=== PATIENT | male | born 1945 | race American Indian/Alaskan Native ===

== ENCOUNTER 2016-12-09 09:24 | Observation (INO) | payer MEDICARE, BC ==
[2016-12-09 09:25] VITALS: BMI 21.5
--- NOTE | 2016-12-09 10:17 | C.PDOC ---
History Of Present Illness 71 Y/O MALE PRESENTS TO ED C/O NEW ONSET RECTAL BLEED THIS MORNING. PT REPORTS CONSTIPATION ONGOING FOR SEVERAL WEAKS, +STRAINING, AND NOTES LARGE BM A FEW DAYS AGO. REPORTS REGULAR BOWEL MOVEMENT WITH GROSS BLOOD/CLOTS. NOTES ASSOCIATED RECTAL PAIN AND ABDOMINAL CRAMPING. TRIED OTC HEMORRHOID REMEDIES W/ LIMITED IMPROVEMENT. PT CURRENTLY ON CHEMO FOR PROSTATE CANCER. NO ABD SURGICAL HISTORY. PT MISSED DIALYSIS YESTERDAY ([facility] DR. BERGER). FAMILY STATES "DR. BUSTOS WANTS NOTIFICATION". ho met prostate ca to bone Time Seen by Provider: 12/09/16 09:36 Chief Complaint (Nursing): Abdominal Pain History Per: Patient, Family History/Exam Limitations: no limitations Onset/Duration Of Symptoms: Hrs Current Symptoms Are (Timing): Still Present Quality Of Discomfort: "Pain" Associated Symptoms: denies: Vomiting, Diarrhea Recent travel outside of the [place]: No Past Medical History Reviewed: Historical Data, Nursing Documentation, Vital Signs Vital Signs: Last Vital Signs Temp 98.3 F 12/09/16 09:29 Pulse 92 H 12/09/16 11:53 Resp 20 12/09/16 11:53 BP 174/97 H 12/09/16 11:53 Pulse Ox 100 12/09/16 12:44 - Medical History PMH: HTN, Chronic Kidney Disease Family History: States: Unknown Family Hx - Social History Hx Alcohol Use: No Hx Substance Use: No - Immunization History Hx Influenza Vaccination: No Review Of Systems Except As Marked, All Systems Reviewed And Found Negative. Constitutional: Negative for: Fever, Chills Cardiovascular: Negative for: Chest Pain Respiratory: Negative for: Cough, Shortness of Breath, Wheezing Gastrointestinal: Positive for: Abdominal Pain, Constipation, Hematochezia, Rectal Pain. Negative for: Nausea, Vomiting, Diarrhea Skin: Negative for: Rash Neurological: Negative for: Headache, Dizziness Physical Exam - Physical Exam Appears: Non-toxic, No Acute Distress Skin: Normal Color, Warm, Dry Head: Atraumatic, Normacephalic Oral Mucosa: Moist Chest: Symmetrical Cardiovascular: Rhythm Regular Respiratory: Normal Breath Sounds, No Rales, No Rhonchi, No Wheezing Gastrointestinal/Abdominal: Soft, Tenderness (MILD, LOWER QUADRANTS), No Distention, No Guarding, No Rebound Rectal: Other (NO VISUALIZED EXTERNAL HEMORRHOIDS. +FECAL INCONTINENCE W/ BRIGHT RED CLOTS.) Back: Normal Inspection Extremity: Normal ROM Neurological/Psych: Oriented x3, Normal Speech, Normal Cognition ED Course And Treatment - Laboratory Results Result Diagrams: 12/09/16 10:24 12/09/16 10:24 O2 Sat by Pulse Oximetry: 100 - Other Rad CHEST XRAY X-Ray: Viewed By Me, Read By Radiologist Interpretation: IMPRESSION: Right-sided MediPort terminates at the expected location of the SVC. Mild pulmonary venous congestion. Cardiomegaly. Bony metastatic disease re-identified. Nuclear medicine bone scan may be considered if indicated. Left upper extremity vascular stent. Progress - Re-Evaluation Re-evaluation Note: 12/09/16 10:[address] Dimitri BUSTOS 12/09/16 10:20 D/W DR [place] C/F DR BERGER WILL CONSULT, ARRANGE FOR HD 12/09/16 10:[address] BUSTOS, WILL EVAL PT IN ER 12/09/16 14:17 NO RECUR LGIB SINCE INITIAL EVAL. PT STABLE IN HD. D/W DR WELLINGTON C/F PMD WILL AMDIT - Data Reviewed Data Reviewed: Lab, Diagnostic imaging, EKG, Old records - Continuity of Care Discussed patient case with:: Patient, Family-HIPPA compliant, Covering for PMD Discussed pt. case with sap solution manager consultant/specialty: Nephrology, Urology Disposition Counseled Patient/Family Regarding: Studies Performed, Diagnosis - Disposition Disposition: HOSPITALIZED Disposition Time: 14:21 Condition: STABLE Forms: [facility] (Indian) - POA Present On Arrival: None - Clinical Impression Clinical Impression: GI bleed, ESRD (end stage renal disease) - Scribe Statement The provider has reviewed the documentation as recorded by the Scribe SM All medical record entries made by the Scribe were at my direction and personally dictated by me. I have reviewed the chart and agree that the record accurately reflects my personal performance of the history, physical exam, medical decision making, and the department course for this patient. I have also personally directed, reviewed, and agree with the discharge instructions and disposition. Decision To Admit - Pt Status Changed To: Hospital Disposition Of: Observation - . Bed Request Type: Regular Admitting Physician: Sujit Wellington Patient Diagnosis: GI bleed, ESRD (end stage renal disease)
[2016-12-09] MEDS ORDERED: Iohexol 240 (50 ml) PO STA (10:18)
[2016-12-09 10:29] LABS: BASO % 0.6 % (0.0-2.0); EOS # 0.1 K/uL (0.0-0.7); EOS % 0.7 % (0.0-4.0); HEMATOCRIT 33.4 % (35.0-51.0); LYMPH # 0.8 K/uL (1.0-4.3); LYMPH % 9.4 % (20.0-40.0); MEAN CELL VOLUME 103.6 fL (80.0-94.0); MEAN CORPUSCULAR HEMOGLOBIN 32.7 pg (27.0-31.0); MEAN CORPUSCULAR HGB CONC 31.5 g/dL (33.0-37.0); MONO # 0.9 K/uL (0.0-0.8); MONO % 10.7 % (0.0-10.0); RED CELL DISTRIBUTION WIDTH 19.3 % (11.5-14.5); WHITE BLOOD COUNT 8.4 K/uL (4.8-10.8)
[2016-12-09 10:36] LABS: INR 1.1
[2016-12-09 10:38] LABS: POTASSIUM 5.4 mmol/L (3.6-5.2)
[2016-12-09 10:39] LABS: ALB/GLOB RATIO 1.2 (1.0-2.1); BILIRUBIN,TOTAL 0.5 mg/dL (0.2-1.3); TOTAL PROTEIN 5.3 g/dL (6.3-8.3)
[2016-12-09 10:40] LABS: CALCIUM 9.1 mg/dl (8.6-10.4)
[2016-12-09 10:44] LABS: PLATELET COUNT 96 K/uL (130-400)
[2016-12-09 10:57] LABS: EOSINOPHIL 1 % (0-4); NEUTROPHIL 75 % (50-75); TOTAL CELLS COUNTED 100
[2016-12-09] MEDS ORDERED: Iohexol 240 (50 ml) ONE (10:58)
--- NOTE | 2016-12-09 12:08 | RAD ---
HISTORY: abd pain GI BLEED HO PROSTATE CA COMPARISON: Chest x-ray performed 11/02/16 TECHNIQUE: Chest, one view. FINDINGS: Right-sided MediPort terminates at the expected location of the SVC. LUNGS: Mild pulmonary venous congestion. Please note that chest x-ray has limited sensitivity for the detection of pulmonary masses. PLEURA: No significant pleural effusion identified. No definite pneumothorax . CARDIOVASCULAR: Cardiomegaly. Atherosclerotic calcifications of the aortic knob. OSSEOUS STRUCTURES: Disseminated sclerotic osseous metastatic disease re-identified. VISUALIZED UPPER ABDOMEN: Unremarkable. OTHER FINDINGS: Left upper extremity vascular stent. IMPRESSION: Right-sided MediPort terminates at the expected location of the SVC. Mild pulmonary venous congestion. Cardiomegaly. Bony metastatic disease re-identified. Nuclear medicine bone scan may be considered if indicated. Left upper extremity vascular stent. Findings discussed with Dr. Lovell on 12/09/16 at 12:05 p.m.
--- NOTE | 2016-12-09 12:44 | C.PDOC ---
History Of Present Illness PLEASE SEE DICTATED REPORT JOB# [id number] YS IMP: PROSTATE CA RENAL FAILURE BONE METASTASES BACK PAIN RECTAL BLEEDING CONSTIPATION CASTRATE RESISTANT PROSTATE CA Time Seen by Provider: 12/09/16 09:36 Chief Complaint (Nursing): Abdominal Pain Past Medical History Vital Signs: Last Vital Signs Temp 99.4 F 12/11/16 15:10 Pulse 92 H 12/11/16 15:10 Resp 20 12/11/16 15:10 BP 155/71 H 12/11/16 15:10 Pulse Ox 97 12/11/16 15:10 - Medical History PMH: HTN, Chronic Kidney Disease Family History: States: Unknown Family Hx - Social History Hx Alcohol Use: No Hx Substance Use: No - Immunization History Hx Influenza Vaccination: No ED Course And Treatment - Laboratory Results Result Diagrams: 12/10/16 00:32 12/11/16 07:05 O2 Sat by Pulse Oximetry: 100 Disposition - Disposition Disposition: HOSPITALIZED Disposition Time: 12:00 Condition: FAIR - Clinical Impression Clinical Impression: GI bleed, ESRD (end stage renal disease)
[2016-12-09] MEDS ORDERED: Iodixanol 320 MG/ML 100 ML BOTTLE IV ONE (12:52)
--- NOTE | 2016-12-09 14:00 | CT ---
PROCEDURE: CT Abdomen and Pelvis with oral and IV contrast. HISTORY: abd pain RECTAL BLEED HO PROSTATE CA, ESRD COMPARISON: None. TECHNIQUE: Contiguous axial images of the abdomen and pelvis. Oral and IV contrast was administered. Coronal and Sagittal reformats generated. Contrast dose: Radiation dose: Total exam DLP = 319.67 mGy-cm. This CT exam was performed using one or more of the following dose reduction techniques: Automated exposure control, adjustment of the mA and/or kV according to patient size, and/or use of iterative reconstruction technique. FINDINGS: LOWER THORAX: Moderate bilateral pleural effusions and associated consolidations. No visible pneumothorax. LIVER: Heterogeneous hepatic parenchyma. Innumerable too small characterize hepatic lesions. GALLBLADDER AND BILE DUCTS: Cholelithiasis. PANCREAS: Unremarkable. SPLEEN: Unremarkable. ADRENALS: Unremarkable. KIDNEYS AND URETERS: Atrophic bilateral kidneys. Too small to characterize bilateral renal hypodense lesions. Indeterminate left upper pole 9 x 13 mm hypodensity. No hydronephrosis. BLADDER: The urinary bladder appears unremarkable. REPRODUCTIVE: Prostatic radiation seeds. APPENDIX: The appendix appears within normal limits of caliber. No secondary signs of acute appendicitis. BOWEL: The stomach is nondistended. The bowel loops appear within normal limits of caliber without evidence of intestinal obstruction. PERITONEUM: No significant free fluid. No definite free air. LYMPH NODES: No bulky lymphadenopathy identified. VASCULATURE: Aneurysmal dilatation of the abdominal aorta and bilateral common iliac arteries. Abdominal aorta measures up to 4.1 cm in AP dimension and 4.0 cm in transverse dimension the right common iliac artery measures up to 2.2 cm the left common iliac artery measures approximately 1.7 cm. A stent is noted within the left common iliac artery. 11 mm hypodense out pouching along the lateral aspect of the proximal left common iliac artery appears consistent with thrombosed saccular aneurysm. BONES: Diffuse sclerotic metastases. OTHER FINDINGS: Interval development of presacral fluid. IMPRESSION: Aneurysmal dilatation of the abdominal aorta and bilateral common iliac arteries as above. 11 mm hypodense out pouching along the lateral aspect of the proximal left common iliac artery appears consistent with thrombosed saccular aneurysm. Innumerable too small to characterize hepatic hypodensities. Findings appear most worrisome for metastatic disease. Correlate clinically. Diffuse sclerotic metastases. Prostatic radiation beads. Cholelithiasis. Atrophic bilateral kidneys with low-density lesions, too small to characterize. Additionally there is an indeterminate left upper pole 9 x 13 mm hypodensity. Interval development of presacral fluid. Remainder of findings as above.
[2016-12-09] MEDS ORDERED: Pantoprazole 80 MG in Sodium Chloride 0.9% 100 ML IVP SCH (17:00)
[2016-12-09 17:47] LABS: BASO % 0.4 % (0.0-2.0); EOS # 0.1 K/uL (0.0-0.7); EOS % 1.5 % (0.0-4.0); HEMATOCRIT 34.9 % (35.0-51.0); LYMPH # 0.6 K/uL (1.0-4.3); LYMPH % 6.7 % (20.0-40.0); MEAN CELL VOLUME 103.1 fL (80.0-94.0); MEAN CORPUSCULAR HEMOGLOBIN 33.6 pg (27.0-31.0); MEAN CORPUSCULAR HGB CONC 32.5 g/dL (33.0-37.0); MONO # 0.9 K/uL (0.0-0.8); MONO % 10.6 % (0.0-10.0); PLATELET COUNT 100 K/uL (130-400); RED CELL DISTRIBUTION WIDTH 19.4 % (11.5-14.5); WHITE BLOOD COUNT 8.8 K/uL (4.8-10.8)
[2016-12-09 18:28] LABS: NEUTROPHIL 78 % (50-75); TOTAL CELLS COUNTED 100
--- NOTE | 2016-12-09 18:40 | CP.PCM.HP ---
<Zachary Vásquez - Last Filed: 12/09/16 19:35> History of Present Illness - History of Present Illness History of Present Illness: PGY-1 H&P for Dr. Emmanuel CC: Rectal bleeding since this morning (12/09/16) This is a 71 year old male with PMHx metastatic prostate cancer (mets to the thoracolumbar spine, ribs, pelvis, right shoulder), hypertension, ESRD on HD ( , , ) who presented to the ED with complaint of bright red blood in the stool. This began in the morning when the patient noticed regina blood in the stool with clots mixed in. Stool was partially watery and solid. This was a one time episode and has not previously occurred. Patient is complaining of associated rectal pain worse with sitting and with defecation. Patient is incontinent of stool at his baseline and wears an adult diaper. Patient is able to feel his bowel movements but cannot control it. Patient admits to constipation with associated tenesmus. He states that he has been straining since a few weeks prior to today's episode. Patient has been experiencing RUQ abdominal pain for the past 2 weeks described as a constant 7/10 burning pain. Patient also complaining of sour taste in his mouth with excessive belching. Yesterday patient missed his dialysis session due to feeling sick which he described as simply feeling weak. At baseline, patient is able to ambulate on his own but requires his to assist with toileting and showers. Patient receives chemotherapy every 3 weeks for his prostate cancer. Patient was seen and examined while he was undergoing hemodialysis. PMHx: Metastatic prostate cancer (mets to the thoracolumbar spine, ribs, pelvis , right shoulder), hypertension, ESRD on HD (, , ) PSHx: Radioactive seeds implantation for prostate CA 3-4 years ago Allergies: NKDA Social: Former smoker smoked 2 ppd for 25 years and also quit about 25 years ago. Denies alcohol, drug use. Family Hx: Denies Home meds: See [facility] PMD: Dr. Enzo Alamo Nephro: Dr. Velez Uro: Dr. Ashley Lorenzo Heme/onc: Dr. Raffi Alamo Present on Admission - Present on Admission Any Indicators Present on Admission: No Review of Systems - Constitutional Constitutional: Weakness. absent: Chills, Fever, Headache - EENT Eyes: absent: Change in Vision Ears: absent: Decreased Hearing Nose/Mouth/Throat: absent: Nasal Congestion Additional comments: Sour taste in mouth - Cardiovascular Cardiovascular: absent: Chest Pain, Palpitations - Respiratory Respiratory: absent: Cough, Dyspnea, Wheezing - Gastrointestinal Gastrointestinal: Abdominal Pain, Belching, Bloating, Constipation, Fecal Incontinence (baseline), Hematochezia. absent: Change in Bowel Habits, Change in Stool Character, Diarrhea, Excessive Flatus, Hematemesis, Nausea, Vomiting - Genitourinary Genitourinary: absent: Dysuria, Hematuria Past Patient History - Past Medical History & Family History Past Medical History?: Yes - Past Social History Smoking Status: Never Smoked - CARDIAC Hx Hypertension: Yes - PULMONARY Hx Respiratory Disorders: No - NEUROLOGICAL Hx Neurological Disorder: No - HEENT Hx HEENT Problems: No - RENAL Hx Chronic Kidney Disease: Yes - ENDOCRINE/METABOLIC Hx Endocrine Disorders: No - HEMATOLOGICAL/ONCOLOGICAL Hx Blood Disorders: Yes Hx Cancer: Yes (PROSTATE) Hx Chemotherapy: Yes (CURRENT TREATMENT) Hx Shingles: Yes - INTEGUMENTARY Hx Dermatological Problems: No - MUSCULOSKELETAL/RHEUMATOLOGICAL Hx Musculoskeletal Disorders: No - GASTROINTESTINAL Hx Gastrointestinal Disorders: No - GENITOURINARY/GYNECOLOGICAL Hx Genitourinary Disorders: Yes Hx Hematuria: Yes Hx Prostate Cancer: Yes - PSYCHIATRIC Hx Substance Use: No - SURGICAL HISTORY Hx Surgeries: Yes Hx Arteriovenous Shunt: Yes (LEFT ARM) Other/Comment: right endarectomy, av-shunt - ANESTHESIA Hx Anesthesia: Yes Hx Anesthesia Reactions: No Hx Malignant Hyperthermia: No Meds Allergies/Adverse Reactions: Allergies Allergy/AdvReac Type Severity Reaction Status Date / Time No Known Allergies Allergy Verified 12/09/16 09:28 Physical Exam - Constitutional Appears: No Acute Distress - Head Exam Head Exam: ATRAUMATIC, NORMAL INSPECTION, NORMOCEPHALIC - Eye Exam Eye Exam: EOMI, PERRL Additional comments: Pallor under the eyelids - ENT Exam ENT Exam: Mucous Membranes Dry - Respiratory Exam Respiratory Exam: Clear to Auscultation Bilateral. absent: Rales, Rhonchi, Wheezes - Cardiovascular Exam Cardiovascular Exam: REGULAR RHYTHM, +S1, +S2 - GI/Abdominal Exam GI & Abdominal Exam: Normal Bowel Sounds, Soft, Tenderness (diffuse abdominal tenderness). absent: Organomegaly, Rebound, Rigid Additional comments: Abdominal aortic pulse palpable - Rectal Exam Rectal Exam: Deferred (patient receiving dialysis at time of exam) - Extremities Exam Extremities exam: Positive for: pedal pulses present. Negative for: pedal edema , tenderness Additional comments: Left UE AV shunt - Neurological Exam Neurological exam: Alert, CN II-XII Intact, Oriented x3 Additional comments: Manual muscle strength testing 4/5 bilateral upper and lower extremities symmetrically. Sensations to light touch intact bilateral upper and lower extremities. No pronator drift. Normal finger to nose test. Down-going plantar responses. - Skin Skin Exam: Dry, Intact, Normal Color, Warm Additional comments: Mediport catheter Results - Vital Signs Recent Vital Signs: Last Vital Signs Temp 98.1 F 12/09/16 17:36 Pulse 90 12/09/16 17:36 Resp 20 12/09/16 17:36 BP 155/79 H 12/09/16 17:36 Pulse Ox 98 12/09/16 17:36 - Labs Result Diagrams: 12/09/16 17:39 12/09/16 10:24 Labs: Laboratory Results - last 24 hr 12/09/16 17:39 WBC 8.8 RBC 3.38 L Hgb 11.4 L Hct 34.9 L MCV 103.1 H MCH 33.6 H MCHC 32.5 L RDW 19.4 H Plt Count 100 L MPV 9.0 Neut % (Auto) 80.8 H Lymph % (Auto) 6.7 L [place] % (Auto) 10.6 H Eos % (Auto) 1.5 Baso % (Auto) 0.4 Neut # 7.1 H Lymph # 0.6 L [place] # 0.9 H Eos # 0.1 Baso # 0.0 Assessment & Plan - Assessment and Plan (Free Text) Assessment: This is a 71 year old male with PMHx metastatic prostate cancer (mets to the thoracolumbar spine, ribs, pelvis, right shoulder), hypertension, ESRD on HD (T , , ) who presented to the ED with complaint of bright red blood in the stool. It is likely that this could be due to hemorrhoids vs radiation proctitis vs GI malignancy vs diverticular bleeding vs Crohn's disease. The likelihood of hemorrhoids is supported by patient's complaint of constipation, straining, pain with defecation and sitting. Radiation proctitis causing GI bleed is also possible given patient's history of prostate CA with chemotherapy and radioactive bead implantation. New onset of GI malignancy is possible given patient's history of chemotherapy treatment which can cause more malignancy in the body over time. Diverticular bleeding may also be possible but unlikely given CT findings. Crohn's disease is possible given bimodal age distribution but low likelihood. Plan: GI Bleed NPO status Protonix drip 8 cc/hr Will hold fluids for now considering ESRD Hold all anticoagulants and antiplatelet therapies due to bleeding risk CBC Q6H and will transfuse if hemoglobin drops by more than 1 g/DL Patient type and crossed Dr. Morales GI consulted, help appreciated Metastatic Prostate CA Dr. Dimitri Lorenzo on consult, help appreciated Hypertension Restarted home Norvasc 2.5 mg PO daily Monitor accordingly ESRD Dr. Robledo on consult, help appreciated HD T, , S Abdominal Aortic Aneurysm with peripheral thrombus Dr. Woods, vascular surgery consulted. Help appreciated 4.1 cm AAA Prophylactic Measures SCDs NPO except medications Restarted home Tramadol 50 mg PO Q6H prn pain Case DW Dr. Lien Vásquez PGY-1 - Date & Time Date: 12/09/16 Time: 16:30 <Cj Emmanuel - Last Filed: 01/12/17 11:55> Results - Vital Signs Recent Vital Signs: Last Vital Signs Temp 99.4 F 12/11/16 15:10 Pulse 92 H 12/11/16 15:10 Resp 20 12/11/16 15:10 BP 155/71 H 12/11/16 15:10 Pulse Ox 100 12/15/16 07:46 - Labs Result Diagrams: 12/10/16 00:32 12/11/16 07:05 Attending/Attestation - Attestation I have personally seen and examined this patient.: Yes I have fully participated in the care of the patient.: Yes I have reviewed all pertinent clinical information: Yes Notes (Text): GI Bleed The likelihood of hemorrhoids is supported by patient's complaint of constipation, straining, pain with defecation and sitting. Radiation proctitis causing GI bleed is also possible given patient's history of prostate CA with chemotherapy and radioactive bead implantation. New onset of GI malignancy is possible given patient's history of chemotherapy treatment which can cause more malignancy in the body over time. Diverticular bleeding may also be possible but unlikely given CT findings. Crohn's disease is possible given bimodal age distribution but low likelihood.
--- NOTE | 2016-12-09 21:17 | CP.PCM.CON ---
History of Present Illness - History of Present Illness History of Present Illness: Vascular Surgery Consult Re: AAA with mural thrombus HPI: 71M presented to the ED C/O BRBPR and rectal pain. Began today with blood and clots in the stool. Per pt has not previously occurred. Rectal pain worse with sitting and defecation. Vascular surgery was consulted 2/2 incidental finding of mural thrombus within a known abdominal aortic aneurysm. AAA is unchanged in size since March 2016 (no IV contrast in any other scans). Currently pt denies any abd or back pain. + weakness. PMH: Metastatic prostate cancer, HTN, ESRD on HD PSH: L CEA, Foot surgery, L common iliac stent, Radioactive seeds implantation for prostate CA, L AV shunt SH: Former smoker quit ~25 years ago. Denies EtOH, drug use. All: NKDA Meds: See MAR Review of Systems - Review of Systems All systems: reviewed and no additional remarkable complaints except (as per HPI ) Past Patient History - Past Medical History & Family History Past Medical History?: Yes - Past Social History Smoking Status: Never Smoked - CARDIAC Hx Hypertension: Yes - PULMONARY Hx Respiratory Disorders: No - NEUROLOGICAL Hx Neurological Disorder: No - HEENT Hx HEENT Problems: No - RENAL Hx Chronic Kidney Disease: Yes - ENDOCRINE/METABOLIC Hx Endocrine Disorders: No - HEMATOLOGICAL/ONCOLOGICAL Hx Blood Disorders: Yes Hx Cancer: Yes (PROSTATE) Hx Chemotherapy: Yes (CURRENT TREATMENT) Hx Shingles: Yes - INTEGUMENTARY Hx Dermatological Problems: No - MUSCULOSKELETAL/RHEUMATOLOGICAL Hx Musculoskeletal Disorders: No - GASTROINTESTINAL Hx Gastrointestinal Disorders: No - GENITOURINARY/GYNECOLOGICAL Hx Genitourinary Disorders: Yes Hx Hematuria: Yes Hx Prostate Cancer: Yes - PSYCHIATRIC Hx Substance Use: No - SURGICAL HISTORY Hx Surgeries: Yes Hx Arteriovenous Shunt: Yes (LEFT ARM) Other/Comment: right endarectomy, av-shunt - ANESTHESIA Hx Anesthesia: Yes Hx Anesthesia Reactions: No Hx Malignant Hyperthermia: No Meds Allergies/Adverse Reactions: Allergies Allergy/AdvReac Type Severity Reaction Status Date / Time No Known Allergies Allergy Verified 12/09/16 09:28 - Medications Medications: Current Medications Amlodipine Besylate (Norvasc) 2.5 mg PO DAILY KRISS Last Admin: 12/09/16 19:31 Dose: Not Given Tramadol HCl (Ultram) 50 mg PO Q6 PRN PRN Reason: Pain, moderate (4-7) Physical Exam - Constitutional Appears: Non-toxic, No Acute Distress - Head Exam Head Exam: ATRAUMATIC, NORMOCEPHALIC - Eye Exam Eye Exam: absent: Conjunctival injection, Periorbital swelling, Scleral icterus - ENT Exam ENT Exam: Mucous Membranes Dry Additional comments: trachea midine - Respiratory Exam Respiratory Exam: NORMAL BREATHING PATTERN. absent: Respiratory Distress - Cardiovascular Exam Cardiovascular Exam: RRR, +S1, +S2 - GI/Abdominal Exam GI & Abdominal Exam: Soft. absent: Distended, Firm, Guarding, Rebound, Rigid, Tenderness - Rectal Exam Rectal Exam: Deferred - Extremities Exam Extremities exam: Negative for: calf tenderness, pedal edema Additional comments: LUE AV shunt - Back Exam Back exam: absent: CVA tenderness (L), CVA tenderness (R) - Neurological Exam Neurological exam: Alert, Oriented x3 - Skin Skin Exam: Dry, Warm Results - Vital Signs Recent Vital Signs: Last Vital Signs Temp 98 F 12/09/16 18:12 Pulse 91 H 12/09/16 18:12 Resp 20 12/09/16 18:12 BP 158/79 H 12/09/16 18:12 Pulse Ox 98 12/09/16 18:12 - Labs Result Diagrams: 12/09/16 17:39 12/09/16 10:24 Labs: Laboratory Results - last 24 hr 12/09/16 12/09/16 17:39 19:47 WBC 8.8 RBC 3.38 L Hgb 11.4 L Hct 34.9 L MCV 103.1 H MCH 33.6 H MCHC 32.5 L RDW 19.4 H Plt Count 100 L MPV 9.0 Neut % (Auto) 80.8 H Lymph % (Auto) 6.7 L [place] % (Auto) 10.6 H Eos % (Auto) 1.5 Baso % (Auto) 0.4 Neut # 7.1 H Lymph # 0.6 L [place] # 0.9 H Eos # 0.1 Baso # 0.0 Neutrophils % (Manual) 78 H Lymphocytes % (Manual) 14 L Monocytes % (Manual) 8 Platelet Estimate Slightly decreased L Hypochromasia (manual) Slight Poikilocytosis (manual Slight Anisocytosis (manual) Slight Tear Drop Cells Slight Moose Cells Slight Blood Type B POSITIVE - Imaging and Cardiology CT scan - abdomen Status: Image reviewed by me, Report reviewed by me Assessment & Plan - Assessment and Plan (Free Text) Assessment: 71M with AAA stable during the last 6 months Plan: Mural (peripheral) thrombus part of natural progression of AAA No surgical intervention required Continue outpatient monitoring of AAA [id number] No need for anticoagulation D/W Dr. Mychal Galicia PGY4
[2016-12-10 00:40] LABS: BASO % 0.5 % (0.0-2.0); EOS # 0.2 K/uL (0.0-0.7); EOS % 2.3 % (0.0-4.0); HEMATOCRIT 32.2 % (35.0-51.0); LYMPH # 0.4 K/uL (1.0-4.3); LYMPH % 6.9 % (20.0-40.0); MEAN CELL VOLUME 102.7 fL (80.0-94.0); MEAN CORPUSCULAR HEMOGLOBIN 32.9 pg (27.0-31.0); MEAN PLATELET VOLUME 8.7 fL (7.2-11.7); MONO # 0.8 K/uL (0.0-0.8); MONO % 11.8 % (0.0-10.0); NRBC % 0.1 % (0.0-2.0); PLATELET COUNT 87 K/uL (130-400); RED CELL DISTRIBUTION WIDTH 19.3 % (11.5-14.5); WHITE BLOOD COUNT 6.5 K/uL (4.8-10.8)
[2016-12-10 01:49] LABS: EOSINOPHIL 3 % (0-4); NEUTROPHIL 75 % (50-75); TOTAL CELLS COUNTED 100
[2016-12-10 07:51] LABS: POTASSIUM 4.8 mmol/L (3.6-5.2)
[2016-12-10 07:53] LABS: BILIRUBIN,TOTAL 0.8 mg/dL (0.2-1.3); TOTAL PROTEIN 5.6 g/dL (6.3-8.3)
[2016-12-10 07:54] LABS: CALCIUM 8.5 mg/dl (8.6-10.4)
[2016-12-10 07:55] LABS: ALB/GLOB RATIO 1.2 (1.0-2.1)
[2016-12-10] MEDS ORDERED: Mineral Oil Enema 135 ml RC ONE (08:00)
--- NOTE | 2016-12-10 08:03 | CP.PCM.CON ---
<August Bettencourt - Last Filed: 12/10/16 08:00> History of Present Illness - History of Present Illness History of Present Illness: PGY5 GI Fellow Consult Note Patient is a 71yo male with PMHx significant for prostate cancer with metastases to bone and liver s/p brachytherapy and ongoing chemotherapy Q3 months, ESRD on HD, AAA, HTN who presented to the ED with complaint of rectal bleeding. The patient admits that he has suffered with long-standing constipation but has noted worsening symptoms in the days leading up to admission. He admits to frequent pushing/straining to stool and upon passing stool yesterday had noted bright red blood per rectum. He had rectal pain and believing this to be due to hemorrhoids, used OTC remedies without relief. In the past year he has noted worsening fecal incontinence with urgency to defecate. Denies using laxative therapy routinely at home. Since admission he has not noted any further episodes of rectal bleeding. Separately, he admits to abdominal bloating, occasional heartburn. He denies dizziness, lightheadedness, nausea, vomiting. PMHx: See HPI PSHx: Left foot fifth digit proximal IP joint arthroplasty, Fulguration of prostatic bleeding, AVF FHx: Discussed with patient and he denies any significant family history Social: Prior tobacco use (50 pack year hx), social EtOH use (not currently), denies illicit drug use Endo: No prior endoscopic evaluations Review of Systems - Constitutional Constitutional: Weight Loss. absent: Anorexia, Chills, Fever - EENT Eyes: absent: Change in Vision Nose/Mouth/Throat: absent: Sore Throat - Cardiovascular Cardiovascular: absent: Chest Pain, Dyspnea, Palpitations - Respiratory Respiratory: absent: Cough, Dyspnea, Excessive Mucous Production - Gastrointestinal Gastrointestinal: Abdominal Pain, Bloating, Constipation, Diarrhea, Fecal Incontinence, Hematochezia, Loose Stools. absent: Dysphagia, Melena, Nausea, Vomiting - Genitourinary Genitourinary: absent: Dysuria, Urinary Frequency, Urinary Urgency - Musculoskeletal Musculoskeletal: Back Pain. absent: Neck Pain - Integumentary Integumentary: absent: New Lesions, Rash, Skin Ulcer - Neurological Neurological: Weakness. absent: Dizziness, Numbness - Psychiatric Psychiatric: absent: Anxiety, Depression - Endocrine Endocrine: absent: Polydipsia, Polyphagia, Polyuria - Hematologic/Lymphatic Hematologic: absent: Easy Bleeding, Easy Bruising, Lymphadenopathy Past Patient History - Past Medical History & Family History Past Medical History?: Yes - Past Social History Smoking Status: Never Smoked - CARDIAC Hx Hypertension: Yes - PULMONARY Hx Respiratory Disorders: No - NEUROLOGICAL Hx Neurological Disorder: No - HEENT Hx HEENT Problems: No - RENAL Hx Chronic Kidney Disease: Yes Type of Dialysis Access: LEFT ARM AV SHUNT Date of Last Dialysis Treatment: 12/09/16 - ENDOCRINE/METABOLIC Hx Endocrine Disorders: No - HEMATOLOGICAL/ONCOLOGICAL Hx Blood Disorders: Yes Hx Cancer: Yes (PROSTATE) Hx Chemotherapy: Yes (CURRENT TREATMENT) Hx Shingles: Yes - INTEGUMENTARY Hx Dermatological Problems: No - MUSCULOSKELETAL/RHEUMATOLOGICAL Hx Falls: No - GASTROINTESTINAL Hx Gastrointestinal Disorders: No - GENITOURINARY/GYNECOLOGICAL Hx Genitourinary Disorders: Yes Hx Hematuria: Yes Hx Prostate Cancer: Yes - PSYCHIATRIC Hx Substance Use: No - SURGICAL HISTORY Hx Surgeries: Yes Hx Arteriovenous Shunt: Yes (LEFT ARM) Other/Comment: right endarectomy, av-shunt - ANESTHESIA Hx Anesthesia: Yes Hx Anesthesia Reactions: No Hx Malignant Hyperthermia: No Has any member of the family had a problem w/ anesthesia?: No Meds Allergies/Adverse Reactions: Allergies Allergy/AdvReac Type Severity Reaction Status Date / Time No Known Allergies Allergy Verified 12/09/16 09:28 - Medications Medications: Current Medications Amlodipine Besylate (Norvasc) 2.5 mg PO DAILY [facility] Last Admin: 12/09/16 19:31 Dose: Not Given Mineral Oil (Fleet Mineral Oil Enema) 135 ml RC ONCE ONE Stop: 12/10/16 07:47 Pantoprazole Sodium (Protonix Ec Tab) 40 mg PO ACB [facility] Tramadol HCl (Ultram) 50 mg PO Q6 PRN PRN Reason: Pain, moderate (4-7) Physical Exam - Constitutional Appears: No Acute Distress, Cachectic, Chronically Ill - Eye Exam Eye Exam: EOMI, PERRL - ENT Exam ENT Exam: Mucous Membranes Dry - Respiratory Exam Respiratory Exam: Clear to Auscultation Bilateral. absent: Rales, Rhonchi, Wheezes - Cardiovascular Exam Cardiovascular Exam: RRR, +S1, +S2 - GI/Abdominal Exam GI & Abdominal Exam: Normal Bowel Sounds, Soft. absent: Distended, Firm, Guarding, Organomegaly, Rigid, Tenderness - Rectal Exam Rectal Exam: absent: Black Stool, Bloody Stool, Hemorrhoids Additional comments: poor anal sphincter tone - Extremities Exam Extremities exam: Positive for: normal inspection. Negative for: pedal edema - Neurological Exam Neurological exam: Alert, Oriented x3 - Psychiatric Exam Psychiatric exam: Normal Affect, Normal Mood - Skin Skin Exam: Dry, Warm Results - Vital Signs Recent Vital Signs: Last Vital Signs Temp 98.1 F 12/09/16 23:35 Pulse 84 12/10/16 00:25 Resp 20 12/09/16 23:35 BP 161/81 H 12/09/16 23:35 Pulse Ox 96 12/09/16 23:35 - Labs Result Diagrams: 12/10/16 00:32 12/10/16 07:18 Labs: Laboratory Results - last 24 hr 12/09/16 12/09/16 12/10/16 17:39 19:47 00:32 WBC 8.8 6.5 RBC 3.38 L 3.13 L Hgb 11.4 L 10.3 L Hct 34.9 L 32.2 L MCV 103.1 H 102.7 H MCH 33.6 H 32.9 H MCHC 32.5 L 32.0 L RDW 19.4 H 19.3 H Plt Count 100 L 87 L MPV 9.0 8.7 Neut % (Auto) 80.8 H 78.5 H Lymph % (Auto) 6.7 L 6.9 L [place] % (Auto) 10.6 H 11.8 H Eos % (Auto) 1.5 2.3 Baso % (Auto) 0.4 0.5 Neut # 7.1 H 5.1 Lymph # 0.6 L 0.4 L Dillon # 0.9 H 0.8 Eos # 0.1 0.2 Baso # 0.0 0.0 Neutrophils % (Manual) 78 H 75 Band Neutrophils % 2 Lymphocytes % (Manual) 14 L 10 L Monocytes % (Manual) 8 10 Eosinophils % (Manual) 3 Platelet Estimate Slightly decreased L Normal Hypochromasia (manual) Slight Poikilocytosis (manual Slight Anisocytosis (manual) Slight Tear Drop Cells Slight Moose Cells Slight Sodium Potassium Chloride Carbon Dioxide Anion Gap BUN Creatinine Est GFR ( Amer) Est GFR (Non-Af Amer) Random Glucose Calcium Total Bilirubin AST ALT Alkaline Phosphatase Total Protein Albumin Globulin Albumin/Globulin Ratio Stool Occult Blood Blood Type B POSITIVE Antibody Screen Negative 12/10/16 12/10/16 01:09 07:18 WBC RBC Hgb Hct MCV MCH MCHC RDW Plt Count MPV Neut % (Auto) Lymph % (Auto) [place] % (Auto) Eos % (Auto) Baso % (Auto) Neut # Lymph # Dillon # Eos # Baso # Neutrophils % (Manual) Band Neutrophils % Lymphocytes % (Manual) Monocytes % (Manual) Eosinophils % (Manual) Platelet Estimate Hypochromasia (manual) Poikilocytosis (manual Anisocytosis (manual) Tear Drop Cells [place] Cells Sodium 132 Potassium 4.8 Chloride 91 L Carbon Dioxide 28 Anion Gap 18 BUN 29 H Creatinine 5.9 H Est GFR ( Amer) 11 Est GFR (Non-Af Amer) 9 Random Glucose 41 L Calcium 8.5 L Total Bilirubin 0.8 AST 24 ALT 29 Alkaline Phosphatase 82 Total Protein 5.6 L Albumin 3.0 L Globulin 2.6 Albumin/Globulin Ratio 1.2 Stool Occult Blood Positive H Blood Type Antibody Screen Assessment & Plan - Assessment and Plan (Free Text) Assessment: Patient is a 71yo male with PMHx significant for prostate cancer with metastases to bone and liver s/p brachytherapy and ongoing chemotherapy Q3 months, ESRD on HD, AAA, HTN who presented to the ED with complaint of rectal bleeding -Hematochezia -Proctitis noted on CT imaging -Prostate cancer s/p brachytherapy and ongoing chemotherapy Q3 months -ESRD on HD T/R/Sa -AAA -HTN Plan: -CT imaging reviewed; proctitis noted - R/O radiation proctitis, ischemic colitis, malignancy, consequences of chronic constipation -Recommend NPO, enema x2 now, flexibile sigmoidoscopy today -Poor anal sphincter tone noted on exam; possibly related to chronic constipation, nerve or muscle damage from malignancy/brachytherapy -Incontinence could be 2/2 overflow or poor tone; no solid stool noted in vault on exam -Miralax 17g PO QD - titrate to 1BM/day -Patient does not need PPI gtt, discontinued -Protonix 40mg PO QAMAC given dyspeptic symptoms and chronic Ultram use -Will need outpatient EGD/Colonoscopy - Date & Time Date: 12/10/16 Time: 06:45 <Sharath Morales - Last Filed: 12/10/16 11:38> Meds - Medications Medications: Current Medications Amlodipine Besylate (Norvasc) 5 mg PO DAILY [facility] Pantoprazole Sodium (Protonix Ec Tab) 40 mg PO ACB [facility] Tramadol HCl (Ultram) 50 mg PO Q6 PRN PRN Reason: Pain, moderate (4-7) Results - Vital Signs Recent Vital Signs: Last Vital Signs Temp 98.3 F 12/10/16 07:20 Pulse 99 H 12/10/16 07:20 Resp 20 12/10/16 07:20 BP 164/82 H 12/10/16 07:20 Pulse Ox 98 12/10/16 07:20 - Labs Result Diagrams: 12/10/16 00:32 12/10/16 07:18 Labs: Laboratory Results - last 24 hr 12/09/16 12/09/16 12/10/16 17:39 19:47 00:32 WBC 8.8 6.5 RBC 3.38 L 3.13 L Hgb 11.4 L 10.3 L Hct 34.9 L 32.2 L MCV 103.1 H 102.7 H MCH 33.6 H 32.9 H MCHC 32.5 L 32.0 L RDW 19.4 H 19.3 H Plt Count 100 L 87 L MPV 9.0 8.7 Neut % (Auto) 80.8 H 78.5 H Lymph % (Auto) 6.7 L 6.9 L [place] % (Auto) 10.6 H 11.8 H Eos % (Auto) 1.5 2.3 Baso % (Auto) 0.4 0.5 Neut # 7.1 H 5.1 Lymph # 0.6 L 0.4 L Dillon # 0.9 H 0.8 Eos # 0.1 0.2 Baso # 0.0 0.0 Neutrophils % (Manual) 78 H 75 Band Neutrophils % 2 Lymphocytes % (Manual) 14 L 10 L Monocytes % (Manual) 8 10 Eosinophils % (Manual) 3 Platelet Estimate Slightly decreased L Normal Hypochromasia (manual) Slight Poikilocytosis (manual Slight Anisocytosis (manual) Slight Tear Drop Cells Slight [place]ose Cells Slight Sodium Potassium Chloride Carbon Dioxide Anion Gap BUN Creatinine Est GFR ( Amer) Est GFR (Non-Af Amer) Random Glucose Calcium Total Bilirubin AST ALT Alkaline Phosphatase Total Protein Albumin Globulin Albumin/Globulin Ratio Stool Occult Blood Blood Type B POSITIVE Antibody Screen Negative 12/10/16 12/10/16 01:09 07:18 WBC RBC Hgb Hct MCV MCH MCHC RDW Plt Count MPV Neut % (Auto) Lymph % (Auto) [place] % (Auto) Eos % (Auto) Baso % (Auto) Neut # Lymph # [place] # Eos # Baso # Neutrophils % (Manual) Band Neutrophils % Lymphocytes % (Manual) Monocytes % (Manual) Eosinophils % (Manual) Platelet Estimate Hypochromasia (manual) Poikilocytosis (manual Anisocytosis (manual) Tear Drop Cells [place] Cells Sodium 132 Potassium 4.8 Chloride 91 L Carbon Dioxide 28 Anion Gap 18 BUN 29 H Creatinine 5.9 H Est GFR ( Amer) 11 Est GFR (Non-Af Amer) 9 Random Glucose 41 L Calcium 8.5 L Total Bilirubin 0.8 AST 24 ALT 29 Alkaline Phosphatase 82 Total Protein 5.6 L Albumin 3.0 L Globulin 2.6 Albumin/Globulin Ratio 1.2 Stool Occult Blood Positive H Blood Type Antibody Screen Attending/Attestation - Attestation I have personally seen and examined this patient.: Yes I have fully participated in the care of the patient.: Yes I have reviewed all pertinent clinical information: Yes Notes (Text): 12/10/16 11:32 I have seen and examined patient with GI fellow. Agree with above documentation with the following additions. In brief, this is a 71 year old male with history of metastatic prostate cancer s/p radioactive seed implantation, chemotherapy, AAA, ESRD on HD, HTN who presents to hospital with complaint of rectal bleeding which started yesterday. Prior to this he was in usual state of health and has not had any similar prior episodes. He admits to chronic constipation with frequent straining during defecation. He has tried over the counter therapies for management of suspected hemorrhoid disease in the past. He otherwise denies abdominal pain, nausea, vomiting, fever/chills, or weight loss. Metastatic prostate cancer ESRD on HD HTN Rectal bleeding - differential is broad in patient without any prior endoscopic history - proctitis, hemorrhoids, diverticular disease, malignancy, AVMs, etc - H/H stable without subsequent episodes of bleeding while in hospital, continue to monitor - Diet as tolerated - Continue with PPI therapy - Will plan for flexible sigmoidoscopy today for further evaluation, administer 2 enemas today prior to procedure - Patient will benefit from complete colonoscopy for colorectal cancer screening , particularly given anemia. This can be performed electively as outpatient, will provide office contact information to patient.
[2016-12-10] MEDS ORDERED: Lactated Ringer's 500 ML IV ONE (11:32)
[2016-12-10] MEDS ORDERED: Propofol 10 mg/ml Inj (20 ML) ONE (11:34)
[2016-12-10] MEDS: Pantoprazole 40 mg EC Tab PO SCH (14:43)
--- NOTE | 2016-12-10 16:01 | CP.PCM.CON ---
History of Present Illness - History of Present Illness History of Present Illness: 71 y/o male with ESRD on maintenance HD, Prostate Ca with bony mets, HTN was admitted yesterday for BRBPR with abdominal cramping. Pt had missed his dialysis on Wednesday because he was not feeling good Pt was seen by me yesterday in ER .Was unable to do the consultation because Pt was not admitted at that time Past Patient History - Past Medical History & Family History Past Medical History?: Yes - Past Social History Smoking Status: Never Smoked - CARDIAC Hx Hypertension: Yes - PULMONARY Hx Respiratory Disorders: No - NEUROLOGICAL Hx Neurological Disorder: No - HEENT Hx HEENT Problems: No - RENAL Hx Chronic Kidney Disease: Yes Type of Dialysis Access: LEFT ARM AV SHUNT Date of Last Dialysis Treatment: 12/09/16 - ENDOCRINE/METABOLIC Hx Endocrine Disorders: No - HEMATOLOGICAL/ONCOLOGICAL Hx Blood Disorders: Yes Hx Cancer: Yes (PROSTATE) Hx Chemotherapy: Yes (CURRENT TREATMENT) Hx Shingles: Yes - INTEGUMENTARY Hx Dermatological Problems: No - MUSCULOSKELETAL/RHEUMATOLOGICAL Hx Falls: No - GASTROINTESTINAL Hx Gastrointestinal Disorders: No - GENITOURINARY/GYNECOLOGICAL Hx Genitourinary Disorders: Yes Hx Hematuria: Yes Hx Prostate Cancer: Yes - PSYCHIATRIC Hx Substance Use: No - SURGICAL HISTORY Hx Surgeries: Yes Hx Arteriovenous Shunt: Yes (LEFT ARM) Other/Comment: right endarectomy, av-shunt - ANESTHESIA Hx Anesthesia: Yes Hx Anesthesia Reactions: No Hx Malignant Hyperthermia: No Has any member of the family had a problem w/ anesthesia?: No Meds Home Medications: Home Medication List Medication Instructions Recorded Confirmed Type Mesalamine [Canasa] 1,000 mg HS #21 sup 12/10/16 Rx Allergies/Adverse Reactions: Allergies Allergy/AdvReac Type Severity Reaction Status Date / Time No Known Allergies Allergy Verified 12/09/16 09:28 - Medications Medications: Current Medications Amlodipine Besylate (Norvasc) 5 mg PO DAILY [facility] Docusate Sodium (Colace) 100 mg PO DAILY [facility] Mesalamine (Canasa) 1,000 mg NC DAILY [facility] Last Admin: 12/10/16 14:00 Dose: 1,000 mg Pantoprazole Sodium (Protonix Ec Tab) 40 mg PO ACB [facility] Last Admin: 12/10/16 14:43 Dose: 40 mg Polyethylene Glycol (Miralax) 17 gm PO DAILY [facility] Tramadol HCl (Ultram) 50 mg PO Q6 PRN PRN Reason: Pain, moderate (4-7) Physical Exam - Constitutional Appears: No Acute Distress - Head Exam Head Exam: ATRAUMATIC, NORMOCEPHALIC - Eye Exam Additional comments: JVD negative - ENT Exam ENT Exam: Mucous Membranes Moist - Neck Exam Additional comments: Neck supple - Respiratory Exam Additional comments: Lungs clear - Cardiovascular Exam Cardiovascular Exam: REGULAR RHYTHM - GI/Abdominal Exam GI & Abdominal Exam: Soft Additional comments: mild diffuse tenderness - Extremities Exam Additional comments: No edema or cyamosis Results - Vital Signs Recent Vital Signs: Last Vital Signs Temp 97.8 F 12/10/16 11:55 Pulse 99 H 12/10/16 12:25 Resp 18 12/10/16 12:25 BP 180/90 H 12/10/16 12:25 Pulse Ox 100 12/10/16 12:25 - Labs Result Diagrams: 12/10/16 00:32 12/10/16 07:18 Labs: Laboratory Results - last 24 hr 12/09/16 12/09/16 12/10/16 17:39 19:47 00:32 WBC 8.8 6.5 RBC 3.38 L 3.13 L Hgb 11.4 L 10.3 L Hct 34.9 L 32.2 L MCV 103.1 H 102.7 H MCH 33.6 H 32.9 H MCHC 32.5 L 32.0 L RDW 19.4 H 19.3 H Plt Count 100 L 87 L MPV 9.0 8.7 Neut % (Auto) 80.8 H 78.5 H Lymph % (Auto) 6.7 L 6.9 L [place] % (Auto) 10.6 H 11.8 H Eos % (Auto) 1.5 2.3 Baso % (Auto) 0.4 0.5 Neut # 7.1 H 5.1 Lymph # 0.6 L 0.4 L [place] # 0.9 H 0.8 Eos # 0.1 0.2 Baso # 0.0 0.0 Neutrophils % (Manual) 78 H 75 Band Neutrophils % 2 Lymphocytes % (Manual) 14 L 10 L Monocytes % (Manual) 8 10 Eosinophils % (Manual) 3 Platelet Estimate Slightly decreased L Normal Hypochromasia (manual) Slight Poikilocytosis (manual Slight Anisocytosis (manual) Slight Tear Drop Cells Slight [place] Cells Slight Sodium Potassium Chloride Carbon Dioxide Anion Gap BUN Creatinine Est GFR ( Amer) Est GFR (Non-Af Amer) Random Glucose Calcium Total Bilirubin AST ALT Alkaline Phosphatase Total Protein Albumin Globulin Albumin/Globulin Ratio Stool Occult Blood Blood Type B POSITIVE Antibody Screen Negative 12/10/16 12/10/16 01:09 07:18 WBC RBC Hgb Hct MCV MCH MCHC RDW Plt Count MPV Neut % (Auto) Lymph % (Auto) [place] % (Auto) Eos % (Auto) Baso % (Auto) Neut # Lymph # [place] # Eos # Baso # Neutrophils % (Manual) Band Neutrophils % Lymphocytes % (Manual) Monocytes % (Manual) Eosinophils % (Manual) Platelet Estimate Hypochromasia (manual) Poikilocytosis (manual Anisocytosis (manual) Tear Drop Cells [place] Cells Sodium 132 Potassium 4.8 Chloride 91 L Carbon Dioxide 28 Anion Gap 18 BUN 29 H Creatinine 5.9 H Est GFR ( Amer) 11 Est GFR (Non-Af Amer) 9 Random Glucose 41 L Calcium 8.5 L Total Bilirubin 0.8 AST 24 ALT 29 Alkaline Phosphatase 82 Total Protein 5.6 L Albumin 3.0 L Globulin 2.6 Albumin/Globulin Ratio 1.2 Stool Occult Blood Positive H Blood Type Antibody Screen Assessment & Plan - Assessment and Plan (Free Text) Assessment: ESRD on maintenance D Lower GI bleed AAA HTN Plan: Pt had tolerated dialysis well yesterday with UF of 3 Kg For dialysis tomorrow Hb is stable
--- NOTE | 2016-12-10 18:02 | CP.PCM.DIS ---
Provider - Provider Date of Admission: 12/09/16 14:22 Attending physician: Sujit Wellington MD Primary care physician: Jasmeet Consults: Ashley vyas - Uro Andrew - GI Vascular - [facility] [place] Time Spent in preparation of Discharge (in minutes): 60 Hospital Course - Lab Results Lab Results: Most Recent Lab Values WBC 6.5 K/uL (4.8-10.8) 12/10/16 00:32 RBC 3.13 Mil/uL (4.40-5.90) L 12/10/16 00:32 Hgb 10.3 g/dL (12.0-18.0) L 12/10/16 00:32 Hct 32.2 % (35.0-51.0) L 12/10/16 00:32 MCV 102.7 fL (80.0-94.0) H 12/10/16 00:32 MCH 32.9 pg (27.0-31.0) H 12/10/16 00:32 MCHC 32.0 g/dL (33.0-37.0) L 12/10/16 00:32 RDW 19.3 % (11.5-14.5) H 12/10/16 00:32 Plt Count 87 K/uL (130-400) L 12/10/16 00:32 MPV 8.7 fL (7.2-11.7) 12/10/16 00:32 Neut % (Auto) 78.5 % (50.0-75.0) H 12/10/16 00:32 Lymph % (Auto) 6.9 % (20.0-40.0) L 12/10/16 00:32 [place] % (Auto) 11.8 % (0.0-10.0) H 12/10/16 00:32 Eos % (Auto) 2.3 % (0.0-4.0) 12/10/16 00:32 Baso % (Auto) 0.5 % (0.0-2.0) 12/10/16 00:32 Neut # 5.1 K/uL (1.8-7.0) 12/10/16 00:32 Lymph # 0.4 K/uL (1.0-4.3) L 12/10/16 00:32 [place] # 0.8 K/uL (0.0-0.8) 12/10/16 00:32 Eos # 0.2 K/uL (0.0-0.7) 12/10/16 00:32 Baso # 0.0 K/uL (0.0-0.2) 12/10/16 00:32 Neutrophils % (Manual) 75 % (50-75) 12/10/16 00:32 Band Neutrophils % 2 % (0-2) 12/10/16 00:32 Lymphocytes % (Manual) 10 % (20-40) L 12/10/16 00:32 Monocytes % (Manual) 10 % (0-10) 12/10/16 00:32 Eosinophils % (Manual) 3 % (0-4) 12/10/16 00:32 Platelet Estimate Normal (NORMAL) 12/10/16 00:32 Hypochromasia (manual) Slight 12/09/16 17:39 Poikilocytosis (manual Slight 12/09/16 17:39 Anisocytosis (manual) Slight 12/09/16 17:39 Macrocytosis (manual) Moderate 12/09/16 10:24 Tear Drop Cells Slight 12/09/16 17:39 Moose Cells Slight 12/09/16 17:39 PT 12.1 SECONDS (9.7-12.2) 12/09/16 10:24 INR 1.1 12/09/16 10:24 APTT 26 SECONDS (21-34) 12/09/16 10:24 Sodium 132 mmol/L (132-148) 12/10/16 07:18 Potassium 4.8 mmol/L (3.6-5.2) 12/10/16 07:18 Chloride 91 mmol/L (98-107) L 12/10/16 07:18 Carbon Dioxide 28 mmol/L (22-30) 12/10/16 07:18 Anion Gap 18 (10-20) 12/10/16 07:18 BUN 29 mg/dL (9-20) H 12/10/16 07:18 Creatinine 5.9 MG/DL (0.8-1.5) H 12/10/16 07:18 Est GFR ( Amer) 11 12/10/16 07:18 Est GFR (Non-Af Amer) 9 12/10/16 07:18 Random Glucose 41 mg/dL (75-110) L 12/10/16 07:18 Calcium 8.5 mg/dl (8.6-10.4) L 12/10/16 07:18 Total Bilirubin 0.8 mg/dL (0.2-1.3) 12/10/16 07:18 AST 24 U/L (17-59) 12/10/16 07:18 ALT 29 U/L (21-72) 12/10/16 07:18 Alkaline Phosphatase 82 U/L (38-126) 12/10/16 07:18 Total Protein 5.6 g/dL (6.3-8.3) L 12/10/16 07:18 Albumin 3.0 g/dL (3.5-5.0) L 12/10/16 07:18 Globulin 2.6 gm/dL (2.2-3.9) 12/10/16 07:18 Albumin/Globulin Ratio 1.2 (1.0-2.1) 12/10/16 07:18 Lipase 224 U/L (23-300) 12/09/16 10:24 Stool Occult Blood Positive (NEGATIVE) H 12/10/16 01:09 Blood Type B POSITIVE 12/09/16 19:47 Antibody Screen Negative 12/09/16 19:47 - Hospital Course Hospital Course: This is a 71 year old male with PMHx metastatic prostate cancer (mets to the thoracolumbar spine, ribs, pelvis, right shoulder), hypertension, ESRD on HD (T , Th, S) who presented to the ED with complaint of bright red blood in the stool. This began in the morning when the patient noticed regina blood in the stool with clots mixed in. Stool was partially watery and solid. This was a one time episode and has not previously occurred. Patient is complaining of associated rectal pain worse with sitting and with defecation. Patient is incontinent of stool at his baseline and wears an adult diaper. Patient is able to feel his bowel movements but cannot control it. Patient admits to constipation with associated tenesmus. He states that he has been straining since a few weeks prior to today's episode. Patient has been experiencing RUQ abdominal pain for the past 2 weeks described as a constant 7/10 burning pain. Patient also complaining of sour taste in his mouth with excessive belching. Yesterday patient missed his dialysis session due to feeling sick which he described as simply feeling weak. At baseline, patient is able to ambulate on his own but requires his to assist with toileting and showers. Patient receives chemotherapy every 3 weeks for his prostate cancer. 82F with left sided hemiparesis secondary to stroke 2 months ago presents with ulcer on left heel which was drained the previous week on 12/08/16. EKG done in ED showed A fib with rapid ventricular response, RBBB, and Left anterior fascicular block. CXR done in ED showed no evidence of pulmonary disease, possible cardiomegaly. Heel XR done in ED showed mild soft tissue irregularity in posterior left heel with no bone abnormalities. Patient admitted on 12/08/16 due to severity of symptoms and intensity of services needed. Head CT performed on 12/08/16 showed abnormal areas in the right temporal parietal lobe representing encephalomalacia extending into right frontal lobe, cystic area of encephalomalacia noted in right basal ganglia with suggested calcification within the cystic change, and dilation of the ipsilateral right lateral ventricle. Dr. Edmond consulted on 12/09/16 for podiatry issues. Abdominal obstructive series performed on 12/09/16 and showed nonobstructive bowel gas patterns and cardiomegaly. Pt seen at beside by Dr. Hollingsworth on 12/10/16 and was in no acute distress, pt is nonverbal but appeared comfortable. - Date & Time of H&P Date of H&P: 12/10/16 Time of H&P: 17:57 Discharge Exam - Head Exam Head Exam: ATRAUMATIC, NORMOCEPHALIC - Eye Exam Eye Exam: EOMI - ENT Exam ENT Exam: Mucous Membranes Moist - Respiratory Exam Respiratory Exam: NORMAL BREATHING PATTERN. absent: Rales, Wheezes, Stridor - Cardiovascular Exam Cardiovascular Exam: REGULAR RHYTHM - GI/Abdominal Exam GI & Abdominal Exam: Normal Bowel Sounds, Soft. absent: Distended, Tenderness - Neurological Exam Neurological exam: Alert, Oriented x3 - Psychiatric Exam Psychiatric exam: Normal Affect, Normal Mood - Skin Skin Exam: Dry, Intact, Normal Color, Warm Discharge Plan - Discharge Medications Prescriptions: amLODIPine [Norvasc] 5 mg PO DAILY #30 tab Docusate [Colace] 100 mg PO DAILY #30 cap Mesalamine [Canasa] 1,000 mg RC HS #21 sup Mesalamine [Canasa] 1,000 mg [place] DAILY #30 sup Pantoprazole [Protonix EC Tab] 40 mg PO ACB #30 ect Polyethylene Glycol 3350 [Miralax] 17 gm PO DAILY #30 packet - Follow Up Plan Condition: STABLE Disposition: HOME/ ROUTINE Instructions: Laxative, Stool Softeners (By mouth), Mesalamine (By mouth), Amlodipine (By mouth), Pantoprazole (By mouth), Polyethylene Glycol 3350 (By mouth), Gastrointestinal Bleeding (DC), Dialysis Diet (DC), Flexible Sigmoidoscopy (DC), End Stage Kidney Disease (DC) Additional Instructions: Patient is medically stable and cleared for D/c From a GI standpoint patient is stable and clear for D/c. Plan to follow up with Dr. Morales in his office in 3 weeks for outpatient colonoscopy. Please call his office to confirm. From a Vascular surgery standpoint patient is clear and stable for d/c. Please Call Dr. Horta's to make an appointment for outpatient monitoring of his abdominal aortic aneurysm. F/U required in 6 months Please make an appt with your primary physician in 1 week. If you do not have a primary care physician please make an appointment in our clinic. Please return to the ER if Symptoms return Prescription instructions to be provided at D/c Referrals: Sharath Morales MD [Staff Provider] - 3 Weeks (needs EGD/colonoscopy) [facility] [Outside] Seng Horta Jr., MD [Staff Provider] -
[2016-12-11 07:36] LABS: ALB/GLOB RATIO 1.1 (1.0-2.1); BILIRUBIN,TOTAL 0.7 mg/dL (0.2-1.3); TOTAL PROTEIN 5.4 g/dL (6.3-8.3)
[2016-12-11 07:37] LABS: CALCIUM 7.9 mg/dl (8.6-10.4)
[2016-12-11] MEDS: Pantoprazole 40 mg EC Tab PO SCH (08:45)
--- NOTE | 2016-12-11 09:27 | CP.PCM.PN ---
<MairaloveAugust jaime - Last Filed: 12/11/16 09:24> Subjective - Date & Time of Evaluation Date of Evaluation: 12/11/16 Time of Evaluation: 07:40 - Subjective Subjective: PGY5 GI Fellow Progress Note Patient seen and examined bedside this morning. The patient states that he is feeling well and has no complaints at present. Ate and tolerated dinner without issue. No rectal bleeding noted. Was to be D/C yesterday but plan for HD today, thus patient remained in house. Likely to D/C after HD. 12 system ROS performed and negative except where stated. Objective - Vital Signs/Intake and Output Vital Signs (last 24 hours): Temp Pulse Resp BP Pulse Ox 98.6 F 90 20 167/81 H 98 12/11/16 08:31 12/11/16 08:31 12/11/16 08:31 12/11/16 08:31 12/10/16 23:35 - Medications Medications: Current Medications Amlodipine Besylate (Norvasc) 5 mg PO DAILY KRISS Docusate Sodium (Colace) 100 mg PO DAILY KRISS Mesalamine (Canasa) 1,000 mg [place] DAILY KRISS Last Admin: 12/10/16 14:00 Dose: 1,000 mg Pantoprazole Sodium (Protonix Ec Tab) 40 mg PO ACB KRISS Last Admin: 12/11/16 08:45 Dose: 40 mg Polyethylene Glycol (Miralax) 17 gm PO DAILY KRISS Tramadol HCl (Ultram) 50 mg PO Q6 PRN PRN Reason: Pain, moderate (4-7) - Labs Labs: 12/10/16 00:32 12/11/16 07:05 PT 12.1 SECONDS (9.7-12.2) 12/09/16 10:24 INR 1.1 12/09/16 10:24 APTT 26 SECONDS (21-34) 12/09/16 10:24 - Constitutional Appears: Non-toxic, No Acute Distress - Eye Exam Eye Exam: EOMI, PERRL - ENT Exam ENT Exam: Mucous Membranes Moist - Respiratory Exam Respiratory Exam: Clear to Ausculation Bilateral. absent: Rales, Rhonchi, Wheezes - Cardiovascular Exam Cardiovascular Exam: RRR, +S1, +S2 - GI/Abdominal Exam GI & Abdominal Exam: Soft, Normal Bowel Sounds. absent: Distended, Firm, Guarding, Rigid, Tenderness, Organomegaly - Extremities Exam Extremities Exam: Normal Inspection. absent: Pedal Edema - Neurological Exam Neurological Exam: Alert, Awake, Oriented x3 - Psychiatric Exam Psychiatric exam: Normal Affect, Normal Mood - Skin Skin Exam: Dry, Warm Assessment and Plan - Assessment and Plan (Free Text) Assessment: Patient is a 71yo male with PMHx significant for prostate cancer with metastases to bone and liver s/p brachytherapy and ongoing chemotherapy Q3 months, ESRD on HD, AAA, HTN who presented to the ED with complaint of rectal bleeding -Hematochezia 2/2 rectal stercoral ulceration noted on flexible sigmoidoscopy -Proctitis -Prostate cancer s/p brachytherapy and ongoing chemotherapy Q3 months -ESRD on HD T/R/Sa -AAA -HTN Plan: -Patient to be continued on Canasa supp 1000mg [place] QHS for 3 weeks -Miralax 17g PO QD, titrate to 1BM/day -Colace as ordered -Will ultimately need full colonoscopy, endoscopy -Protonix 40mg PO QAMAC given dyspeptic symptoms and chronic Ultram use -Ok for D/C from GI standpoint with outpt follow up with Dr Morales in 3 weeks <Dwayne Ruvalcaba - Last Filed: 12/11/16 13:35> Objective - Vital Signs/Intake and Output Vital Signs (last 24 hours): Temp Pulse Resp BP Pulse Ox 98.2 F 94 H 18 165/94 H 98 12/11/16 09:50 12/11/16 12:30 12/11/16 09:50 12/11/16 12:30 12/10/16 23:35 - Medications Medications: Current Medications Amlodipine Besylate (Norvasc) 5 mg PO DAILY KRISS Docusate Sodium (Colace) 100 mg PO DAILY KRISS Mesalamine (Canasa) 1,000 mg [place] DAILY KRISS Last Admin: 12/10/16 14:00 Dose: 1,000 mg Pantoprazole Sodium (Protonix Ec Tab) 40 mg PO ACB KRISS Last Admin: 12/11/16 08:45 Dose: 40 mg Polyethylene Glycol (Miralax) 17 gm PO DAILY KRISS Tramadol HCl (Ultram) 50 mg PO Q6 PRN PRN Reason: Pain, moderate (4-7) - Labs Labs: 12/10/16 00:32 12/11/16 07:05 PT 12.1 SECONDS (9.7-12.2) 12/09/16 10:24 INR 1.1 12/09/16 10:24 APTT 26 SECONDS (21-34) 12/09/16 10:24 Attending/Attestation - Attestation I have personally seen and examined this patient.: Yes I have fully participated in the care of the patient.: Yes I have reviewed all pertinent clinical information, including history, physical exam and plan: Yes Notes (Text): 12/11/16 13:33 71 year old male with h/o prostate CA with mets, ESRD on HD, AAA, HTN a/w rectal bleeding due to stecoral ulcer. 1. Rectal ulcer Plan: -likely stercoral ulcer -bowel regimen as above, suppositories with canasa to help healing -bleeding is resolved -recommend outpatient colonoscopy in 2-3 months
[2016-12-11] MEDS ORDERED: POLYETHYLENE GLYCOL 3350 17 GM/Dose PACKET PO SCH (10:00)
--- NOTE | 2016-12-11 10:45 | CP.PCM.PN ---
Subjective - Date & Time of Evaluation Date of Evaluation: 12/11/16 Time of Evaluation: 10:00 - Subjective Subjective: Seen on dialysis Appears comfortable Objective - Vital Signs/Intake and Output Vital Signs (last 24 hours): Temp Pulse Resp BP Pulse Ox 98.6 F 90 20 167/81 H 98 12/11/16 08:31 12/11/16 08:31 12/11/16 08:31 12/11/16 08:31 12/10/16 23:35 - Medications Medications: Current Medications Amlodipine Besylate (Norvasc) 5 mg PO DAILY KRISS Docusate Sodium (Colace) 100 mg PO DAILY KRISS Mesalamine (Canasa) 1,000 mg [place] DAILY KRISS Last Admin: 12/10/16 14:00 Dose: 1,000 mg Pantoprazole Sodium (Protonix Ec Tab) 40 mg PO ACB KRISS Last Admin: 12/11/16 08:45 Dose: 40 mg Polyethylene Glycol (Miralax) 17 gm PO DAILY KRISS Tramadol HCl (Ultram) 50 mg PO Q6 PRN PRN Reason: Pain, moderate (4-7) - Labs Labs: 12/10/16 00:32 12/11/16 07:05 PT 12.1 SECONDS (9.7-12.2) 12/09/16 10:24 INR 1.1 12/09/16 10:24 APTT 26 SECONDS (21-34) 12/09/16 10:24 - Respiratory Exam Respiratory Exam: NORMAL BREATHING PATTERN Additional comments: Lungs clear - Cardiovascular Exam Cardiovascular Exam: REGULAR RHYTHM - Extremities Exam Additional comments: No edema Assessment and Plan - Assessment and Plan (Free Text) Assessment: ESRD HTN Metastatic Prostate Ca Lower GI bleed Hb stable S/P colonoscopy which revealed rectal ulcerations Plan: Pt will resume TTS dialysis schedule @ [facility] from tomorrow. They are notified
--- NOTE | 2016-12-11 13:02 | CP.PCM.PN ---
Subjective - Date & Time of Evaluation Date of Evaluation: 12/11/16 Time of Evaluation: 13:02 - Subjective Subjective: Patient see and examined at bedside Doing well with no complaints at this time. Patient is still stable and ready to be discharged. Objective - Vital Signs/Intake and Output Vital Signs (last 24 hours): Temp Pulse Resp BP Pulse Ox 98.6 F 94 H 20 165/94 H 98 12/11/16 08:31 12/11/16 12:30 12/11/16 08:31 12/11/16 12:30 12/10/16 23:35 - Medications Medications: Current Medications Amlodipine Besylate (Norvasc) 5 mg PO DAILY KRISS Docusate Sodium (Colace) 100 mg PO DAILY KRISS Mesalamine (Canasa) 1,000 mg [place] DAILY KRISS Last Admin: 12/10/16 14:00 Dose: 1,000 mg Pantoprazole Sodium (Protonix Ec Tab) 40 mg PO ACB KRISS Last Admin: 12/11/16 08:45 Dose: 40 mg Polyethylene Glycol (Miralax) 17 gm PO DAILY KRISS Tramadol HCl (Ultram) 50 mg PO Q6 PRN PRN Reason: Pain, moderate (4-7) - Labs Labs: 12/10/16 00:32 12/11/16 07:05 PT 12.1 SECONDS (9.7-12.2) 12/09/16 10:24 INR 1.1 12/09/16 10:24 APTT 26 SECONDS (21-34) 12/09/16 10:24
[2016-12-11 16:46] VITALS: RESP 20; TEMP 99.4
[2016-12-11 19:03] VITALS: BP 157/83; PULSE 93
[2016-12-15 07:45] VITALS: O2SAT 100
--- NOTE | 2016-12-15 09:35 | CON ---
DATE: 12/09/2016 UROLOGY CONSULTATION Urology consultation is provided in the emergency room. Urology consultation is provided by Dr. Jessica Lorenzo. REASON FOR CONSULTATION: Abdominal pain. Prostate cancer. Rectal bleeding. HISTORY OF PRESENT ILLNESS: The patient is a 71-year-old male with rectal bleeding. The patient reports rectal bleeding since this morning. The patient has had consultation. He has had occasional diarrhea over the past several weeks. The patient has significant medical history for renal failure treated with hemodialysis. The patient has history of metastatic prostate carcinoma. He had been receiving Trelstar as androgen deprivation therapy. The patient has previously been treated with enzalutamide. He is now receiving chemotherapy. The patient is known to have bone metastasis. There has been no recent fever or rigors. No chest pain. 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 The patient is followed by his oncologist for his prostate carcinoma. The patient reports fair appetite. He previously had weight loss. However, his weight has been stable at present. He underwent hemodialysis yesterday. He voids approximately 1 to 2 times per day. He has nocturia. The patient has good urinary control. No recent hematuria. Occasional dysuria. PHYSICAL EXAMINATION GENERAL: The patient is a well-developed and well-nourished male appearing stated age. The patient's is in attendance. ABDOMEN: Soft, nontender, and mildly distended. BACK: No CVA tenderness. GENITALIA: Without inflammation. LABORATORY DATA: White blood count is 8800, hematocrit is 34.9, and platelet count is [id number]. Elevated BUN and creatinine are noted. IMPRESSION: A 71-year-old male with blood per rectum. He has history of metastatic prostate carcinoma and history of renal failure. RECOMMENDATION AND PLAN: The patient will be hospitalized. The patient will require further GI evaluation. Further oncologic, urologic and nephrologic care to followup. Thank you for recommending the patient to urology consultation. Jessica Lorenzo MD cc: Jessica Lorenzo MD
== END 2016-12-11 19:03 | disposition home or self-care (01) ==
LOC: C.ER 09:24 → C.9E 14:22 → C.6T 17:32
PROVIDERS: ADMIT Internal Medicine; ATTEND Internal Medicine
DX: K62.6 Ulcer of anus and rectum (principal); K59.09 Other constipation; K57.91 Diverticulosis of intestine, part unspecified, without perforation or abscess with bleeding; N18.6 End stage renal disease; Z99.2 Dependence on renal dialysis; Z87.891 Personal history of nicotine dependence
CPT/HCPCS: 36415; 45330; 71010; 74177; 80053; 82948; 83690; 85025; 85610; 85730; 86850; 86900; 86920; 99285; C9113; G0257; G0328; G0378; J7120; Q9966; Q9967